=== PATIENT | female | born 1970 | race Caucasian/White ===

== ENCOUNTER → 2023-08-06 12:37 | Outpatient (REF) | payer OTHER, SELFPAY | LOC: MRI 3T 12:37 | PROVIDERS: ATTENDING PHYSICIAN Pain Medicine Interventional Pain Medicine; FAMILY PHYSICIAN Family Medicine | DX: M54.12 Radiculopathy, cervical region (principal) | CPT/HCPCS: 72141 ==

== ENCOUNTER → 2024-04-26 14:52 | Outpatient (REF) | payer OTHER, SELFPAY | LOC: WDC 14:52 | PROVIDERS: ATTENDING PHYSICIAN Obstetrics & Gynecology; FAMILY PHYSICIAN Family Medicine | DX: Z12.31 Encounter for screening mammogram for malignant neoplasm of breast (principal) | CPT/HCPCS: 77063; 77067 ==

== ENCOUNTER 2024-06-20 20:10 | Emergency (ER) | payer OTHER, SELFPAY ==
[2024-06-20 20:12] VITALS: BP 155/91
[2024-06-20 20:16] VITALS: BMI 36.7
--- NOTE | 2024-06-20 20:33 | ED.GENMED ---
History of Present Illness
General
Chief Complaint: Rabies
Source: patient
Exam Limitations: none
Time Seen by Provider: 06/20/24 20:25
Nursing documentation reviewed up to this point in time: agreed with
History of Present Illness
History of Present Illness:
53-year-old female presents for postexposure prophylaxis for rabies. Patient was trying to get a stray cat into a cage to bring it to the vet because it was unwell after being attacked by an unknown animal. She was scratched on the right forearm;
exposure occurred on 06/02/2024. Cat is now at the vet but apparently according the patient is unhealthy and that advised her to go for postexposure prophylaxis for rabies. She has no redness or pain around the site of the scratch. Patient is
asymptomatic.
Past History
Past History
ED Past Medical History: Fibromyalgia, Hypercholesterolemia, IDDM and Other (mvp, RA oa, Ulcers,)
ED Past Surgical History: Orthopedic
Social History
Tobacco: Former smoker
Alcohol: None
Drug: None
Personal:
Living: with family
Review of Systems
Review of Systems
All Other Systems: ROS reviewed and negative except as documented in HPI and ROS
Skin: Denies rash
Phy Exam
Physical Exam
Physical Exam:
General: Well appearing and non-toxic
HEENT: protecting airway
Neck: appears supple
CV: No evidence of cyanosis
Resp: No accessory muscle use
Abd: Non-distended
Extremities: No deformities
Neuro: Alert
Psych: Normal affect
Skin: Intact�no visible bite or scratch verdugo, no erythema or warmth in the area of concern
Scores
Heart Failure Risk
Heart Failure Risk Score: Not Applicable
Heart Score for Chest Pain Patients
STEMI patient?: Not applicable
Withdrawal Assessment of Alcohol
Withdrawal Assessment Completed?: Not applicable
Course
Orders/Labs/Results
Orders:
Orders
06/20/24 20:36
Rabies Immune Globulin/Pf [HyperRAB] 1,816 unit IM NOW STA
06/20/24 20:45
Rabies Vaccine (Pcec)/Pf [Rabavert Rabies Vacc W-Diluent] 2.5 unit IM .ONCE ONE
Vital Signs
Initial and Last Documented VS:
Initial Vital Signs
Temp Pulse Resp BP Pulse Ox
37.0 C 106 16 155/91 98
06/20/24 20:12 06/20/24 20:12 06/20/24 20:12 06/20/24 20:12 06/20/24 20:12
Last Documented Vital Signs
Temp Pulse Resp BP Pulse Ox
37.0 C 106 16 155/91 98
06/20/24 20:12 06/20/24 20:12 06/20/24 20:12 06/20/24 20:12 06/20/24 20:12
MDM/Problems Addressed
Differential Diagnosis Includes:
Possible rabies exposure
MDM/Problems Addressed:
53-year-old female presents for rabies postexposure prophylaxis. Will update tetanus. Provide rabies Ig and postexposure vaccination. Scratch occurred on 06/02�no signs of infection no need for antibiotic treatment. Patient will need to follow-up
for completion of rabies series.
*Pulse Oximetry
Patient hypoxic: no
*Critical Care Note
Total Time (30-74mins, 75-104mins- exclusive of procedures): Not Applicable
Data Reviewed
Source: patient
Update Note
Update Note:
ED Attending Note
-
Portions of this chart may have been created with voice recognition software.� Occasional wrong word or��sound alike� substitutions may have occurred due to the inherent limitations of voice recognition software.
Discharge Plan
Departure
Patient Disposition: Home (Routine Discharge)
Date of Disposition: 06/20/24
Time of Disposition: 20:37
Patient with high blood pressure during this ER visit?: Yes
Discharge Problem:
Rabies exposure
Instructions: Rabies
Prescriptions:
New
RabAvert (PF) 2.5 unit Suspension For Reconstitution
1 ml IM . DIRECTED Qty: 3 0RF
Rx Instructions:
See Rabies Vaccine Post Exposure Prophylaxis Instruction Sheet for Dosing Instructions
No Action
metformin 500 MG tablet
500 mg PO BID
garlic 1,000 MG capsule
1,000 mg PO DAILY
black cohosh root extract 40 MG capsule
3 dose PO DAILY
vitamin B complex 1 EACH tablet
2 ea PO DAILY
fluoxetine 20 MG capsule
20 mg PO DAILY
bupropion HCl 150 MG tablet extended release 24 hr
150 mg PO DAILY
cholecalciferol (vitamin D3) 1,000 UNITS tablet
5,000 units PO DAILY
omega-3 fatty acids-fish oil 1 EACH capsule
2,000 mg PO DAILY
multivitamin with folic acid [Tab-A-Amna] 1 TABLET tablet
1 tab PO DAILY
Cinnamon Tablet
1,000 mg PO DAILY
atorvastatin 10 MG tablet
10 mg PO QPM
sqwmltz-tojmbnzsd-rgsh 1 EACH tablet
1 ea PO DAILY
Tumeric
1 tab PO DAILY
Vitamin C:
1 tab PO DAILY
magnesium oxide 500 MG capsule
500 mg PO DAILY
Stand Alone Forms: Rabies Vaccine Post Exp Dosing
Discharge Date and Time
Print Language: [id number]
[2024-06-20] MEDS: RABAVERT RABIES VACC W-DILUENT 2.5 UNIT IM (21:13)
[2024-06-20] MEDS: HyperRAB 1816 UNIT IM (21:16)
== END 2024-06-20 21:23 | disposition home or self-care (01) ==
LOC: EMR 20:10
PROVIDERS: EMERGENCY PHYSICIAN Emergency Medicine; FAMILY PHYSICIAN Family Medicine
DX: Z20.3 Contact with and (suspected) exposure to rabies (principal); Z23 Encounter for immunization; M79.7 Fibromyalgia; E78.00 Pure hypercholesterolemia, unspecified; E11.9 Type 2 diabetes mellitus without complications; Z87.891 Personal history of nicotine dependence
CPT/HCPCS: 99282; 90471; 96372; 90375; 90675; 90715

== ENCOUNTER 2024-07-04 15:05 | Outpatient (RCR) | payer OTHER, SELFPAY ==
[2024-06-23 10:45] VITALS: BP 158/82
[2024-06-23] MEDS: RABAVERT RABIES VACC W-DILUENT 2.5 UNIT IM (11:05)
[2024-06-27 11:00] VITALS: BP 150/83
[2024-06-27] MEDS: RABAVERT RABIES VACC W-DILUENT 2.5 UNIT IM (11:10)
[2024-07-04 15:05] VITALS: BP 152/77
[2024-07-04] MEDS: RABAVERT RABIES VACC W-DILUENT 2.5 UNIT IM (15:18)
== END 2024-07-05 09:25 | disposition home or self-care (01) ==
LOC: OID 15:05
PROVIDERS: ATTENDING PHYSICIAN Emergency Medicine; FAMILY PHYSICIAN Family Medicine
DX: Z20.3 Contact with and (suspected) exposure to rabies (principal); Z23 Encounter for immunization
CPT/HCPCS: 90471; 90675

== ENCOUNTER → 2024-09-28 12:57 | Outpatient (REF) | payer OTHER, SELFPAY | LOC: RAD 12:57 | PROVIDERS: ATTENDING PHYSICIAN Obstetrics & Gynecology; FAMILY PHYSICIAN Family Medicine | DX: N92.0 Excessive and frequent menstruation with regular cycle (principal) | CPT/HCPCS: 76830; 76856 ==